=== PATIENT | female | born 1980 | race Two or more races ===

== ENCOUNTER → 2025-01-11 | Outpatient (CLI) | payer OTHER, MEDICAID, SELFPAY ==
--- NOTE | 2025-01-11 11:00 | XR_ITS ---
Examination: Screening digital mammography, bilateral Computer aided detection 3-D breast Tomosynthesis, bilateral Date and time of exam: January 11, 2025 1110 hours Compared to mammograms dating to March 25, 2021 Indication: Screening Technique: Nonmagnified MLO, CC views of the breasts to been obtained, reconstructed from 3-D Tomosynthesis images. R2 computer aided detection program utilized for evaluation of suspicious masses and/or abnormal calcifications. 3-D Tomosynthesis images obtained. Findings: Breasts are heterogeneously dense, which may obscure small masses Benign calcifications. 12 mm circumscribed nodule upper outer left breast IMPRESSION: BI-RADS Category 0: Incomplete: Need additional imaging evaluation Recommend follow-up spot tomographic views of 12 mm circumscribed nodule upper outer left breast, bilateral breast sonography to complete the workup
== END | disposition home or self-care (01) ==
PROVIDERS: PCP Physician Assistant; Referring Provider Physician Assistant; Visit Provider Physician Assistant
DX: Z12.31 Encounter for screening mammogram for malignant neoplasm of breast (principal); N63.21 Unspecified lump in the left breast, upper outer quadrant
CPT/HCPCS: 77063; 77067

== ENCOUNTER → 2025-01-20 | Outpatient (CLI) | payer OTHER, MEDICAID, SELFPAY ==
--- NOTE | 2025-01-20 13:30 | XR_ITS ---
Examination: Transvaginal ultrasound of the pelvis, complete Technique: Transvaginal sonographic images pelvis performed using win[employer] scale imaging Exam date and time: January 20, 2025 1333 hours INDICATIONS: Pelvic pain beginning 3 years ago FINDINGS: Uterus 9.9 cm endometrial stripe 0.9 cm No uterine mass or intrauterine gestation Right ovary 1.9 cm arterial flow. Left ovary 3.7 cm arterial flow 15 x 18 mm cyst IMPRESSION: Small left ovarian simple cyst 15 x 20 x 18 mm.
--- NOTE | 2025-01-20 13:30 | XR_ITS ---
Examination: Pelvic ultrasound, transabdominal, complete Technique: Transabdominal ultrasound of the pelvis performed using grayscale imaging Date and time of exam: January 20, 2025 1322 hours INDICATIONS: Pelvic pain radiating to the back beginning 3 years ago FINDINGS: Uterus 7.9 cm endometrial stripe 1.8 cm, no uterine mass or intrauterine gestation Right ovary 2.1 cm arterial flow. Left ovary 3.5 cm arterial flow follicular cysts, the largest 16 x 17 mm IMPRESSION: Small left ovarian follicular cysts
== END | disposition home or self-care (01) ==
PROVIDERS: PCP Physician Assistant; Referring Provider Obstetrics & Gynecology; Visit Provider Obstetrics & Gynecology
DX: N83.02 Follicular cyst of left ovary (principal); N83.292 Other ovarian cyst, left side
CPT/HCPCS: 76830; 76856